=== PATIENT | male | born 1955 | race Caucasian/White ===

== ENCOUNTER 2019-12-02 14:02 | Emergency (ER) | payer BC ==
[2019-12-02] MEDS ORDERED: Sodium Chloride 0.9% 2.5 ML Syringe FLUSH PRN (14:31)
[2019-12-02] MEDS ORDERED: Sodium Chloride 0.9% 10 ML Syringe FLUSH PRN (14:31)
[2019-12-02] MEDS ORDERED: Lidocaine 5% 700 MG Patch TOP ONE (14:45)
--- NOTE | 2019-12-02 14:48 | EDM.PDOC ---
ED HPI GENERAL MEDICAL PROBLEM - General Chief Complaint: General Stated Complaint: NECK PAIN,PASSING OUT Time Seen by Provider: 12/02/19 14:05 Source of Information: Reports: Patient, Old Records History Limitations: Reports: No Limitations - History of Present Illness INITIAL COMMENTS - FREE TEXT/NARRATIVE: 64-year-old male past medical history of acute coronary syndrome status post stenting, hypertension presenting with neck pain and near syncope. Patient reports that around 10:00 this morning, he developed pain to the posterolateral left side of the neck. He was driving when this happened. He reached back to stretch his neck and to try to massage the pain away and he developed near syncopal symptoms. He had to pull the vehicle over but that he was driving because he was worried he was going to pass out. Neck pain persisted throughout the afternoon. Patient tried to massage the pain away again and had a second near syncopal episode. At present he complains of persistent left-sided posterior neck pain and a left occipital headache. Denies any visual disturbance, dysarthria, dysphasia, impaired coordination or gait, facial or extremity numbness or weakness, facial droop, prior history of CVA or TIA. ROS: A 10-point review of systems was negative, except as noted in the HPI (or in the ROS section of this note). Past medical history: Reviewed, no additional pertinent history. Surgical history: Reviewed in system, no additional pertinent history. Social history: Reviewed in system, no additional pertinent history. Family history: Reviewed in system, no additional pertinent history. PHYSICAL EXAM Vital signs reviewed. Nursing notes reviewed. Constitutional: Awake, alert, non-distressed. Head: Normocephalic, atraumatic. Eyes: EOMI, conjunctiva normal, no discharge, no scleral icterus. Ears, Nose, Throat: External ears and nose normal, moist oral mucosa. Cardiovascular: 2+ radial pulse, capillary refill less than 2 seconds. Pulmonary: normal work of breathing, no accessory muscle use. Abdomen/GI: Soft, nontender, nondistended, no guarding or rigidity, no masses. Musculoskeletal: No deformities. Integumentary: Appropriate color for ethnicity, warm, dry, no pallor or jaundice, no rash. Neurologic: Awake, alert, and oriented x3. Cranial nerves II through XII intact. No facial droop or dysarthria. No temporal artery tenderness. Supple neck with normal range of motion. No pronator drift. Normal xrnkif-spai-bypqxy and yocv-[id number]. No dysdiadochokinesia. 5/5 strength in all extremities. Sensation intact to light touch x4. Negative Romberg. Normal gait. Normal visual sullivan, no field cuts. Able to sit, stand, and ambulate without assistance. Psychiatric: Appropriate mood and affect, normal thought process. left neck Pain Score (Numeric/FACES): 5 - Related Data Allergies Allergy/AdvReac Type Severity Reaction Status Date / Time No Known Allergies Allergy Verified 12/02/19 14:22 Home Meds: Home Meds Albuterol [Ventolin HFA] 1 puff IN Q4HR 03/06/16 [History] Escitalopram [Lexapro] 1 tab PO DAILY 03/06/16 [History] Fluticasone/Vilanterol [Breo Ellipta 200-25 Mcg INH] 1 puff IN Q4HR 03/06/16 [History] Losartan/Hydrochlorothiazide [Losartan-HCTZ 100-25 MG] 1 tab PO DAILY 03/06/16 [History] amLODIPine [Norvasc] 1 tab PO DAILY 03/06/16 [History] Acetaminophen [Acetaminophen Extra Strength] 500 - 1,000 mg PO Q6H PRN #30 table t 12/02/19 [Rx] Ibuprofen 400 mg PO Q6H PRN #20 tablet 12/02/19 [Rx] Tiotropium [Spiriva HandiHaler] 18 mcg INH DAILY 12/02/19 [History] Past Medical History Other HEENT History: has upper and lower dentures Cardiovascular History: Reports: Hypertension, Stents Respiratory History: Reports: COPD Gastrointestinal History: Reports: None Genitourinary History: Reports: Renal Calculus Other Genitourinary History: currently Musculoskeletal History: Reports: Back Pain, Chronic Neurological History: Reports: Other (See Below) Other Neuro History: chronic back pain Psychiatric History: Reports: None Endocrine/Metabolic History: Reports: None Hematologic History: Reports: None Immunologic History: Reports: None Oncologic (Cancer) History: Reports: None Dermatologic History: Reports: None - Infectious Disease History Infectious Disease History: Reports: Chicken Pox, Measles - Past Surgical History Head Surgeries/Procedures: Reports: None Neurological Surgical History: Reports: Discectomy, Other (See Below) Musculoskeletal Surgical History: Reports: Amputation, Arthroscopic Knee, Knee Replacement, Shoulder Surgery Social & Family History - Family History Family Medical History: Noncontributory - Tobacco Use Smoking Status *Q: Former Smoker Used Tobacco, but Quit: Yes Month/Year Tobacco Last Used: 2011 - Caffeine Use Caffeine Use: Reports: None - Recreational Drug Use Recreational Drug Use: No ED ROS GENERAL - Review of Systems Review Of Systems: See Below ED EXAM, GENERAL - Physical Exam Exam: See Below EKG INTERPRETATION EKG Interpretation Comments: 64-year-old male past medical history of acute coronary syndrome, hypertension presenting with neck pain and near syncope. 12-Lead ECG Interpretation Acquired: 2:33 PM Rhythm: Sinus rhythm Rate: 69 bpm [place]: Normal Intervals: Normal Ectopy: None Ischemic Changes: None apparent RV Strain: No obvious RV strain pattern. ST Segments/T-Waves: T wave inversions in aVL, P mitrale pattern Interpretation: Nonspecific changes Course - Vital Signs Text/Narrative:: Patient hemodynamically stable, afebrile, well-appearing, looks nontoxic. Differential diagnosis includes but is not limited to: Cervical arterial dissection, muscle strain, musculoskeletal pain, occult trauma, etc. Labs show mild leukocytosis. Normal INR and APTT. Chemistry panel shows mild hypokalemia. Troponin within normal limits. CTA of the neck shows atherosclerotic calcification within both carotid bulbs, no hemodynamically significant stenosis, no dissection. CT of the neck shows anterior cerebral circulation is supplied by the right side, hypoplastic left A1 segment, otherwise no acute findings. Patient is neurovascularll=y intact and well-appearing. Given negative imaging work-up, no evidence of a vascular injury at this point. No evidence of cervical arterial dissection. Suspect neck muscle strain. Patient is stable to discharge home with symptomatic treatment including acetaminophen, ibuprofen, lidocaine patches, heating pad. Encouraged primary care follow-up. Discussed return precautions. All questions answered prior to departure. Last Recorded V/S: Last Vital Signs Temp 36.4 C 12/02/19 17:49 Pulse 68 12/02/19 17:49 Resp 18 12/02/19 17:49 BP 126/71 12/02/19 17:49 Pulse Ox 95 12/02/19 17:49 - Orders/Labs/Meds Orders: Active Orders 24 hr Category Date Time Status Saline Lock Insert [OM.PC] Stat Oth 12/02/19 14:31 Ordered Labs: Laboratory Tests 12/02/19 12/02/19 12/02/19 Range/Units 14:59 14:59 14:59 WBC 13.04 H (4.0-11.0) K/uL RBC 4.75 (4.50-5.90) M/uL Hgb 14.6 (13.0-17.0) g/dL Hct 43.4 (38.0-50.0) % MCV 91.4 (80.0-98.0) fL MCH 30.7 (27.0-32.0) pg MCHC 33.6 (31.0-37.0) g/dL RDW Std Deviation 48.1 (28.0-62.0) fl RDW Coeff of Sarah 14 (11.0-15.0) % Plt Count 455 H (150-400) K/uL MPV 9.00 (7.40-12.00) fL Neut % (Auto) 74.6 (48.0-80.0) % Lymph % (Auto) 18.5 (16.0-40.0) % [place] % (Auto) 5.8 (0.0-15.0) % Eos % (Auto) 0.8 (0.0-7.0) % Baso % (Auto) 0.3 (0.0-1.5) % Neut # (Auto) 9.7 H (1.4-5.7) K/uL Lymph # (Auto) 2.4 (0.6-2.4) K/uL [place] # (Auto) 0.8 (0.0-0.8) K/uL Eos # (Auto) 0.1 (0.0-0.7) K/uL Baso # (Auto) 0.0 (0.0-0.1) K/uL Nucleated RBC % 0.0 /100WBC Nucleated RBCs # 0 K/uL INR 1.12 APTT 26.4 (18.6-31.3) SEC Sodium 141 (136-148) mmol/L Potassium 3.3 L (3.5-5.1) mmol/L Chloride 101 (98-107) mmol/L Carbon Dioxide 28.6 (21.0-32.0) mmol/L BUN 11 (7.0-18.0) mg/dL Creatinine 1.0 (0.8-1.3) mg/dL Est Cr Clr Drug Dosing 76.61 mL/min Estimated GFR (MDRD) > 60.0 ml/min Glucose 83 (74-106) mg/dL Calcium 9.7 (8.5-10.1) mg/dL Troponin I < 0.050 (0.000-0.056) ng/mL Meds: Medications Discontinued Medications Generic Name Dose Route Start Last Admin Trade Name Freq PRN Reason Stop Dose Admin Lidocaine 700 mg 12/02/19 14:45 12/02/19 14:49 Lidoderm 5% TOP 12/02/19 14:46 700 mg ONETIME ONE Administration Sodium Chloride 10 ml 12/02/19 14:31 12/02/19 14:49 Saline Flush FLUSH 10 ml ASDIRECTED PRN Administration Keep Vein Open Sodium Chloride 2.5 ml 12/02/19 14:31 12/02/19 14:49 Saline Flush FLUSH 2.5 ml ASDIRECTED PRN Administration Keep Vein Open Departure - Departure Time of Disposition: 17:36 Disposition: Home, Self-Care 01 Condition: Good Clinical Impression: Neck muscle strain Qualifiers: Encounter type: initial encounter Qualified Code(s): S16.1XXA - Strain of muscle, fascia and tendon at neck level, initial encounter - Discharge Information *PRESCRIPTION DRUG MONITORING PROGRAM REVIEWED*: Not Applicable *COPY OF PRESCRIPTION DRUG MONITORING REPORT IN PATIENT KENYA: Not Applicable Prescriptions: Acetaminophen [Acetaminophen Extra Strength] 500 - 1,000 mg PO Q6H PRN #30 tablet PRN Reason: Pain (Mild 1-3) Ibuprofen 400 mg PO Q6H PRN #20 tablet PRN Reason: Pain (Mild 1-3) Instructions: Cervical Strain and Sprain Rehab-SportsMed Referrals: Michael Hyde MD [Primary Care Provider] - 1 Week (For follow-up of symptoms.) Forms: ED Department Discharge Additional Instructions: You were seen in the emergency department for neck pain. CT scans of your head and brain showed no acute findings and no evidence of an injured blood vessel or a clotted blood vessel. Your pain could possibly be due to a strain of one of the muscles in your neck. Treatment involves [id number] medication such as acetaminophen, ibuprofen, lidocaine patches, and a heating pad. Pain should get better with time. I would like for you to follow-up with your primary doctor in the next week for reevaluation. Warning signs to come back to the ER include worsening pain, numbness or weakness of the facial muscles or your arms or legs, difficulty speaking, vision changes, severe headache, trouble walking or trouble with your coordination, facial droop, or any other new or concerning symptoms. Please return the emergency department immediately if your symptoms worsen or if you feel worse. Thank you for choosing the [facility] emergency department in [place] for your medical needs today. It was a pleasure caring for you. The following information is given to patients seen in the emergency department who are being discharged. This information is to outline your options for follow-up care. We provide all patients seen in our emergency department with a follow-up referral. The need for follow-up, as well as the timing and circumstances, are variable depending upon the specifics of your emergency department visit. If you don't have a primary care physician on staff, we will provide you with a referral. We always advise you to contact your personal physician following an emergency department visit to inform them of the circumstance of the visit and for follow-up with them and/or the need for any referrals to a consulting specialist. The emergency department will also refer you to a specialist when appropriate. This referral assures that you have the opportunity for follow-up care with a specialist. All of these measure are taken in an effort to provide you with optimal care, which includes your follow-up. Under all circumstances we always encourage you to contact your private physician who remains a resource for coordinating your care. When calling for follow-up care, please make the office aware that this follow-up is from your recent emergency room visit. If for any reason you are refused follow-up, please contact the [facility] Emergency Department at and asked to speak to the emergency department charge nurse. If you do not have a primary care physician that is caring for you, you can cont act these clinics below to set up an appointment to establish care: [facility] [address] [place] [id number] [facility] [address] [place] [id number] Sepsis Event Note (ED) - Evaluation Sepsis Screening Result: No Definite Risk - Focused Exam Vital Signs: Vital Signs Temp Pulse Resp BP Pulse Ox 12/02/19 17:49 36.4 C 68 18 126/71 95 12/02/19 14:24 36.3 C 72 16 141/87 H 98 - My Orders Last 24 Hours: My Active Orders 12/02/19 14:31 Saline Lock Insert [OM.PC] Stat - Assessment/Plan Last 24 Hours: My Active Orders 12/02/19 14:31 Saline Lock Insert [OM.PC] Stat
[2019-12-02 15:38] LABS: BLOOD UREA NITROGEN,BUN 11 mg/dL (7.0-18.0); CARBON DIOXIDE,CO2 28.6 mmol/L (21.0-32.0); CHLORIDE,CL 101 mmol/L (98-107); GLUCOSE RANDOM 83 mg/dL (74-106); POTASSIUM,K 3.3 mmol/L (3.5-5.1); SODIUM,NA 141 mmol/L (136-148)
--- NOTE | 2019-12-02 17:02 | CT ---
CT brain angiogram Technique: Multiple axial sections of the brain were obtained. Noncontrast images were also obtained to the brain. Findings: Ventricles along with basal cisterns and sulci of the convexities are mildly prominent. No abnormal parenchymal densities are seen. No evidence of intracranial hemorrhage. No midline shift or mass-effect is seen. Mild atherosclerotic calcification is seen within the carotid siphon. Both distal vertebral arteries are patent. Basilar artery is patent. Both posterior cerebral arteries are patent. Carotid siphon is patent. Middle cerebral arteries and anterior cerebral arteries are also patent. Anterior cerebral artery circulation comes from the right side with hypoplastic left A1 segment. No focal areas of occlusion or stenosis is seen. No findings of dissection is seen. Impression: 1. Anterior cerebral circulation supplied by the right side. Hypoplastic left A1 segment is seen which can be a normal variant. 2. No additional abnormality seen on CT angiogram of the brain. 3. Nothing acute is seen on noncontrast head CT study. Diagnostic code #2 This report was dictated in MDT
--- NOTE | 2019-12-02 17:30 | CT ---
CT angiogram of neck (without and with intravenous contrast) Technique: Noncontrast images initially obtained through the neck. Intravenous contrast then given and imaging obtained during the arterial phase within the neck. Multiple MIP images were obtained. Comparison: No previous study. Findings: Diffuse emphysematous changes are seen within both upper lungs. Parenchymal scarring appears to be present within both upper lungs, worse on the right side. Calcified atherosclerotic plaque is noted within the carotid bulb on both sides. Common carotid arteries show no stenosis. Internal carotid arteries show no hemodynamic significant stenosis. External carotid arteries appear within normal limits. Vertebral arteries show no focal stenosis. Both vertebral arteries are patent into the basilar artery. No focal stenosis or occlusion is seen. No dissection is seen. Degenerative change is noted throughout the cervical spine. Impression: 1. Atherosclerotic calcification which appears calcified seen within both carotid bulbs. 2. No hemodynamic significant stenosis is seen. No dissection is noted. 3. Diffuse degenerative change within the cervical spine is seen. Diagnostic code #3 This report was dictated in MDT
[2019-12-02 17:52] VITALS: BP 126/71; PULSE 68
[2019-12-02] MEDS ORDERED: Iopamidol 755 MG/ML 500 ML Multipack Bottle IVPUSH STA (19:15)
== END 2019-12-02 17:49 | disposition home or self-care (01) ==
LOC: MW.ED 14:02
DX: S16.1XXA Strain of muscle, fascia and tendon at neck level, initial encounter (principal); I10 Essential (primary) hypertension; J44.9 Chronic obstructive pulmonary disease, unspecified; Z79.899 Other long term (current) drug therapy; Z87.891 Personal history of nicotine dependence; X58.XXXA Exposure to other specified factors, initial encounter
CPT/HCPCS: 36415; 70496; 70498; 80048; 84484; 85025; 85610; 85730; 93005; 99284; A9270; Q9967